=== PATIENT | male | born 1945 | race Caucasian/White ===

== ENCOUNTER 2021-09-12 07:13 | Day surgery (SDC) | payer MEDICARE, OTHER ==
[~2021-09-12] VITALS: Ht 175.3 cm; Wt 75.6 kg
[~2021-09-12 07:13] MED LIST: ASPI325 PO; CIPR500 PO; DIAZ5; FLAX; HYDACE5; HYDACE5 PO; LOSA50 PO; LOSARTAN POTASS50 MG PO; LOVA40 PO; MULVIT PO; MULVITMINF; NAPR500; OXYACE5T; OXYACE5T PO; Omeprazole20 M1 PO; PANT40; POLY17UD; PRAV20 PO; PROC25S PR; Prinivil5 MG PO; STOOL SOFTENER; TAMS.4ER; TESTOSTERONE INJ; Testostero100 MG/1 M IM; Zofran4 MG PO; [UNRECOGNIZED DRUG - REMARK]; [UNRECOGNIZED DRUG - REMARK]
[2021-09-12] MEDS ORDERED: BETA BLOCKER (07:29)
--- NOTE | 2021-09-12 07:31 | NUR ---
Ambulatory in Day Surgery. CHICHI TO JUNIOR ADMINISTRATIVE ASSISTANT PT. [phone]. History, Chart, Medications and Allergies reviewed before start of procedure. Lungs clear T/O to Auscultation. Patient confirms NPO status and agrees with scheduled surgery. Pre-Op teaching done. Pt verbalizes understanding. Patient States Post-Procedure ride home has been arranged.
--- NOTE | 2021-09-12 08:43 | NUR ---
09/12/21 0843 Aria Maxwell History, Chart, Medications and Allergies reviewed before start of procedure. Patient confirms NPO status and agrees with scheduled surgery. 3-LEAD EKG REVIEWED WITH PHYSICIAN PRIOR TO START OF PROCEDURE. MONITOR INTACT WITH CONTINUOUS PULSE OXIMETRY AND INTERMITTENT BP. PATIENT DETERMINED TO BE ASA APPROPRIATE FOR PROPOFOL SEDATION PRIOR TO START OF PROCEDURE BY .
--- NOTE | 2021-09-12 09:10 | NUR ---
Patient up to Ambulate independently. Gait steady. Discharge instructions reviewed with patient. Patient verbalizes understanding. Copy given to patient to take home. Patient States Post-Procedure ride home has been arranged. Discharged via wheelchair to private car for ride home.
== END 2021-09-12 22:40 | disposition home or self-care (01) ==
LOC: ORSCMMR 07:13
PROVIDERS: Internal Medicine Gastroenterology
PROC: 0DBN8ZX Excision of Sigmoid Colon, Via Natural or Artificial Opening Endoscopic, Diagnostic (ICD-10-PCS; principal; 2021-09-12 08:00)
DX: Z12.11 Encounter for screening for malignant neoplasm of colon (principal); Z86.010 Personal history of colon polyps; D12.5 Benign neoplasm of sigmoid colon; I25.10 Atherosclerotic heart disease of native coronary artery without angina pectoris; Z79.82 Long term (current) use of aspirin; Z79.899 Other long term (current) drug therapy
CPT/HCPCS: 88305; J2704; J7120

== ENCOUNTER → 2021-10-15 | Outpatient (CLI) | payer MEDICARE, OTHER ==
[~2021-10-15] MED LIST changes: +BETA BLOCKER
[2021-10-15 10:56] LABS: BASOPHILS ABSOLUTE AUTO 0.03 K/mm3 (0.00-0.23); BASOPHILS PERCENT AUTO 1 % (0-2); EOSINOPHILS PERCENT AUTO 2 % (0-6); Hemoglobin 15.3 g/dL (13.5-17.5); IMMATURE GRAN ABSOLUTE AUTO 0.01 K/mm3 (0.00-0.10); IMMATURE GRAN PERCENT AUTO 0 % (0-1); LYMPHOCYTES ABSOLUTE AUTO 1.01 K/mm3 (0.84-5.20); LYMPHOCYTES PERCENT AUTO 18 % (21-46); MONOCYTES ABSOLUTE AUTO 0.55 K/mm3 (0.16-1.47); MONOCYTES PERCENT AUTO 10 % (4-13); Mean Corpuscular HGB 32.3 pg (26.0-34.0); Mean Corpuscular HGB Conc 33.3 g/dL (31.5-36.5); Mean Corpuscular Volume 97 fL (80-100); Mean Platelet Volume 11.2 fL (9.1-12.4); NEUTROPHILS ABSOLUTE AUTO 3.85 K/mm3 (1.96-9.15); NEUTROPHILS PERCENT AUTO 69 % (41-73); Platelet Count 201 K/mm3 (150-400); RDW Coefficient Variation 12.3 % (11.7-14.2); RDW Standard Deviation 43.8 fL (35.1-46.3); Red Blood Cell Count 4.74 M/mm3 (4.30-5.90); White Blood Cell Count 5.55 K/mm3 (4.00-11.30)
[2021-10-15 11:04] LABS: Alanine Aminotransfer (ALT/SGP 22 U/L (12-78); Albumin, Blood 3.7 g/dL (3.4-5.0); Alk Phos 64 U/L (40-126); Anion Gap 6 mmol/L (6-16); Aspartate Aminotrans (AST/SGOT 18 U/L (12-37); Bilirubin, Total 0.4 mg/dL (0.1-1.0); Blood Urea Nitrogen 25 mg/dL (8-24); Bun/Creatinine Ratio 28.7 (12.0-20.0); CO2, Blood 30 mmol/L (21-32); CPK Creatine Kinase 65 U/L (39-308); Calcium, Blood 8.7 mg/dL (8.5-10.1); Chloride, Blood 105 mmol/L (98-108); Creatinine, Blood 0.87 mg/dL (0.60-1.20); Globulin, Blood 3.7 g/dL (2.2-4.0); Glomerular Filtration Rate >60 (60-); Glucose, Blood 88 mg/dL (70-99); Potassium, Blood 4.3 mmol/L (3.5-5.5); Sodium, Blood 141 mmol/L (136-145); Total Protein, Blood 7.4 g/dL (6.4-8.2)
== END ==
LOC: LAB SHORT 10:49
PROVIDERS: General Practice
DX: R07.9 Chest pain, unspecified (principal)
CPT/HCPCS: 80053; 82550; 83880; 84484; 85025; 85379

== ENCOUNTER 2022-09-19 06:24 | Day surgery (SDC) | payer MEDICARE, OTHER ==
[~2022-09-19] VITALS: Ht 175.3 cm; Wt 76.6 kg
--- NOTE | 2022-09-19 06:57 | NUR ---
09/19/22 0657 Joyce Sanchez [place] 0645 [place] 0646
--- NOTE | 2022-09-19 08:27 | NUR ---
09/19/22 0827 GEORGE BRAGAIE STATES THAT PT LEFT HIS HEARING AIDS AT HOME.
== END 2022-09-19 08:17 | disposition home or self-care (01) ==
LOC: ORSCSDS 06:24
PROVIDERS: Student in an Organized Health Care Education/Training Program
PROC: 08DJ3ZZ Extraction of Right Lens, Percutaneous Approach (ICD-10-PCS; principal; 2022-09-19 07:30)
DX: H25.13 Age-related nuclear cataract, bilateral (principal); I25.2 Old myocardial infarction; H35.3132 Nonexudative age-related macular degeneration, bilateral, intermediate dry stage; I10 Essential (primary) hypertension; E78.00 Pure hypercholesterolemia, unspecified; I25.10 Atherosclerotic heart disease of native coronary artery without angina pectoris; Z79.82 Long term (current) use of aspirin; Z79.899 Other long term (current) drug therapy
CPT/HCPCS: J2001; J2250; J3301; J7040; V2632

== ENCOUNTER 2022-10-03 07:31 | Day surgery (SDC) | payer MEDICARE, OTHER ==
[~2022-10-03] VITALS: Ht 175.3 cm; Wt 77.0 kg
--- NOTE | 2022-10-03 09:20 | NUR ---
10/03/22 0920 LIZETH BRAGA NORMAL SALINE USED INSTEAD OF LR
== END 2022-10-03 09:24 | disposition home or self-care (01) ==
LOC: ORSCSDS 07:31
PROVIDERS: Student in an Organized Health Care Education/Training Program
PROC: 08DK3ZZ Extraction of Left Lens, Percutaneous Approach (ICD-10-PCS; principal; 2022-10-03 09:00)
DX: H25.12 Age-related nuclear cataract, left eye (principal); Z96.1 Presence of intraocular lens; E78.5 Hyperlipidemia, unspecified; I25.2 Old myocardial infarction; I10 Essential (primary) hypertension; I25.10 Atherosclerotic heart disease of native coronary artery without angina pectoris; Z79.82 Long term (current) use of aspirin; Z79.899 Other long term (current) drug therapy
CPT/HCPCS: J2001; J2250; J3010; J7040; V2632

== ENCOUNTER → 2023-04-12 | Outpatient (CLI) | payer MEDICARE, OTHER | LOC: LAB 11:30 → LAB SHORT 11:30 | DX: M79.672 Pain in left foot (principal) | CPT/HCPCS: 84550 ==